=== PATIENT | female | born 1990 | race Caucasian/White ===

== ENCOUNTER 2016-11-27 21:17 | Emergency (ER) | payer MEDICAID, OTHER ==
[~2016-11-27] VITALS: Ht 157.5 cm; Wt 70.4 kg
[2016-11-27 21:28] VITALS: Ht 157.5 cm; Wt 70.4 kg
[2016-11-27] MEDS ORDERED: IBUPROFEN 600 MG TAB PO ONE (23:00)
--- NOTE | 2016-11-27 23:31 | RADRPT ---
PROCEDURE: Left ankle x-ray CLINICAL INDICATION: Left ankle pain status post fall. TECHNIQUE: 3 views left ankle. COMPARISON: None FINDINGS: Widening of the medial malleolus. Comminuted fracture of the distal diaphysis and metaphysis of the left fibula. Soft tissue swelling over the bilateral left ankle. Remaining osseous structures are without evident acute fracture. IMPRESSION: Comminuted fracture of the distal diaphysis and metaphysis of the left distal fibula, with disruptio n of the mortise and medial widening of the mortise. RPTAT: [facility] Physician Shawanda Date Time Electronically viewed and signed by Physician Shawanda on 11/27/2016 23:31 RS/
[2016-11-28] MEDS ORDERED: HYDR-906 PO (00:27)
--- NOTE | 2016-11-28 00:36 | ERD ---
ER Documentation Chief Complaint Date/Time DATE: 11/28/16 TIME: 00:31 Chief Complaint LEFT ANKLE PAIN FROM JUMPING AT [employer] DENIES KO HPI This is a 25-year-old female presents to the ER after she twisted her ankle while playing on a trampoline. Patient began to experience severe ankle pain. She denies any numbness or tingling to the foot. Patient does admit to swelling. Patient did not try any medications, she immediately came to the ER. Pain is severe and constant is throbbing in quality. Pain does not radiate anywhere, patient is unable to bear weight on her foot. ROS 12 point review of systems was done, all negative except per HPI. Medications Home Meds Active Scripts Hydrocodone/Acetaminophen (Fountain 5-325 Tablet) 1 Each Tablet, 1 TAB PO Q6H Y for PAIN, #20 TAB Prov:POLA LUNA Kyra 11/28/16 Allergies Allergies: Coded Allergies: No Known Allergy (Unverified , 11/27/16) PMhx/Soc Hx Alcohol Use: No Hx Substance Use: No Hx Tobacco Use: No Smoking Status: Never smoker Physical Exam Vitals Vital Signs Date Time Temp Pulse Resp B/P Pulse Ox O2 Delivery O2 Flow Rate FiO2 11/27/16 21:28 97.8 93 20 126/85 99 Physical Exam GENERAL: The patient is well developed and appropriate for usual state of health , in no apparent distress. HEENT: Atraumatic. CHEST: Clear to auscultation bilaterally. There are no rales, wheezes or rhonchi. HEART: Regular rate and rhythm. No murmurs, clicks, rubs or gallops. EXTREMITIES: Patient is tender to palpation to the left lateral malleolus. Tender to palpation along the distal tibia/fibula. Painful ankle extension and flexion. Positive tarsal twist test. Negative squeeze test. +2 pedal pulses, normal capillary refill. NEURO: Alert and oriented. SKIN: The skin is warm and dry. Results 24 hrs Current Medications Medications (Trade) Dose Ordered Sig/Ivan Route PRN Reason Start Time Stop Time Status Last Admin Dose Admin Ibuprofen (Motrin) 600 mg ONCE ONCE PO 11/27/16 23:00 11/27/16 23:01 DC 11/27/16 22:45 Procedures/MDM This is a 25-year-old female presents to ER with ankle pain after a fall. Patient does have a fracture to the left distal fibula. There is disruption to the ankle mortise. I discussed these findings with Dr. Lopez, and per his recommendation patient was put in a posterior ankle splint with stirrup. She was neurovascularly intact before and after splint application. I discussed following up with orthopedic doctor as soon as possible as this is a very urgent. Patient will be sent home with Fountain. She is to follow-up with her primary care doctor within 1-2 days or return to ER sooner if symptoms worsen. My medical decision making was shared with the patient she understands and agrees with plan. Departure Diagnosis: Primary Impression: Ankle fracture Condition: Stable Patient Instructions: Treating Ankle Fractures Referrals: [facility] [place] YOU HAVE RECEIVED A MEDICAL SCREENING EXAM AND THE RESULTS INDICATE THAT YOU DO NOT HAVE A CONDITION THAT REQUIRES URGENT TREATMENT IN THE EMERGENCY DEPARTMENT. FURTHER EVALUATION AND TREATMENT OF YOUR CONDITION CAN WAIT UNTIL YOU ARE SEEN IN YOUR DOCTORS OFFICE WITHIN THE NEXT 1-2 DAYS. IT IS YOUR RESPONSIBILITY TO MAKE AN APPOINTMENT FOR FOLOW-UP CARE. IF YOU HAVE A PRIMARY DOCTOR --you should call your primary doctor and schedule and appointment IF YOU DO NOT HAVE A PRIMARY DOCTOR YOU CAN CALL OUR PHYSICIAN REFERRAL HOTLINE AT . IF YOU CAN NOT AFFORD TO SEE A PHYSICIAN YOU CAN CHOSE FROM THE FOLLOWING PENDING SALE TO [facility]: [facility] [address] [place] [address] [facility] [address] [place] [address] [facility] [address] [place] [address] [facility] Hours: Mon-Sun 9:00 AM - 5:00 PM Additional Instructions: Call your primary care doctor TOMORROW for an appointment during the next 1-2 days.See the doctor sooner or return here if your condition worsens before your appointment time. POLA LUNA November 28, 2016 00:35
[2016-11-28 00:48] VITALS: BP 138/78; PULSE 80; RESP 20; TEMP 97.9
== END 2016-11-28 01:22 | disposition home or self-care (01) ==
LOC: FTE 21:17
DX: S82.832A Other fracture of upper and lower end of left fibula, initial encounter for closed fracture (principal); W09.8XXA Fall on or from other playground equipment, initial encounter; Y92.89 Other specified places as the place of occurrence of the external cause
CPT/HCPCS: 73610; Z7502; Z7610